=== PATIENT | male | born 1950 | race Caucasian/White ===

== ENCOUNTER → 2016-10-20 | Outpatient (CLI) | payer MEDICARE ==
[~2016-10-20] MED LIST: ASPI-515 PO; ATEN25TA PO; ATEN50TA41 PO; ATOR20TA9 PO; CHOL10003 PO; RIVA20TA PO
== END | disposition home or self-care (01) ==
LOC: CFH 10:36
PROVIDERS: ATTEND Internal Medicine Cardiovascular Disease
DX: I08.2 Rheumatic disorders of both aortic and tricuspid valves (principal); I37.1 Nonrheumatic pulmonary valve insufficiency; I51.7 Cardiomegaly; I51.89 Other ill-defined heart diseases; I48.91 Unspecified atrial fibrillation; Z98.890 Other specified postprocedural states
CPT/HCPCS: 93306

== ENCOUNTER 2019-11-15 08:33 | Outpatient (CLI) | payer MEDICARE ==
[~2019-11-15 08:33] MED LIST changes: +ATOR20TA37 PO; -ATOR20TA9 PO
== END 2019-11-15 23:59 | disposition home or self-care (01) ==
LOC: CFH 08:33
PROVIDERS: ATTEND Internal Medicine Cardiovascular Disease
DX: I08.3 Combined rheumatic disorders of mitral, aortic and tricuspid valves (principal)
CPT/HCPCS: 93306